=== PATIENT | female | born 1960 | race Caucasian/White ===

== ENCOUNTER 2018-07-02 00:52 | Emergency (ER) | payer MEDICAID ==
[2018-07-02 00:59] VITALS: BMI 27.4
--- NOTE | 2018-07-02 01:10 | ED PDOC ---
Arrival/HPI - General Historian: Patient - History of Present Illness Narrative History of Present Illness (Text): 07/02/18 00:59 57 y/o female, pmh including colon cancer diagnosed in 2017 spreading to the spine and under chemotherapy/DVT with stefan filter, nkda, c/o lower abdominal pain x 4 days with chronic lower back pain for over 6 months, thought she is constipated but still in pain, had tramadol at home which she doesn't like the effect so she didn't take it. Pt. also complaining about the rt. calf pain as well as she is concerning about recurrent DVT. Pt. has no nausea/vomiting/diarrhea, no rash, no dizziness, no change in vision, no diarrhea, no other medical or psychological complaints. <Greg Montes - Last Filed: 07/02/18 02:06> Past Medical History - Provider Review Nursing Documentation Reviewed: Yes <Greg Montes - Last Filed: 07/02/18 02:06> Family/Social History - Physician Review Nursing Documentation Reviewed: Yes Family/Social History: Unknown Family HX <Greg Montes - Last Filed: 07/02/18 02:06> Allergies/Home Meds <Greg Montes - Last Filed: 07/02/18 02:06> <Tonio Simmons DO - Last Filed: 07/02/18 06:09> Allergies/Adverse Reactions: Allergies No Known Allergies Allergy (Verified 07/02/18 00:59) Home Medications: Home Meds Medication Instructions Recorded Confirmed Trifluridine/Tipiracil HCl 1 each PO DAILY 07/02/18 07/02/18 [Lonsurf 20 mg-8.19 mg Tablet] Review of Systems - Review of Systems Constitutional: absent: Fatigue, Fevers Eyes: absent: Vision Changes ENT: absent: Hearing Changes Respiratory: absent: SOB, Cough Cardiovascular: absent: Chest Pain Gastrointestinal: Abdominal Pain, Constipation. absent: Nausea, Vomiting Musculoskeletal: Back Pain, Myalgias. absent: Arthralgias, Neck Pain, Joint Swelling Skin: absent: Rash, Pruritis Neurological: absent: Headache, Dizziness Psychiatric: absent: Anxiety, Depression, Suicidal Ideation <Greg Montes - Last Filed: 07/02/18 02:06> Physical Exam Vital Signs Reviewed: Yes Temperature: Afebrile Blood Pressure: Normal Pulse: Tachycardic Respiratory Rate: Normal Appearance: Positive for: Well-Appearing, Non-Toxic, Comfortable Pain Distress: Moderate Mental Status: Positive for: Alert and Oriented X 3 - Systems Exam Head: Present: Atraumatic, Normocephalic Pupils: Present: PERRL Extroacular Muscles: Present: EOMI Conjunctiva: Present: Normal Ears: Present: NORMAL TM, Normal Canal. No: Erythema Mouth: Present: Moist Mucous Membranes Pharnyx: No: ERYTHEMA, EXUDATE, TONSILS ENLARGED, Peritonsilar Swelling, Uvular Deviation, Muffled/Hoarse Voice Nose (Internal): Present: No Active Bleeding. No: Rhinorrhea, Septal Hematoma, Epistaxis Neck: Present: Normal Range of Motion, Trachea Midline. No: Meningeal Signs, MIDLINE TENDERNESS, Paraspinal Tenderness, Lymphadenopathy Respiratory/Chest: Present: Clear to Auscultation, Good Air Exchange. No: Respiratory Distress, Accessory Muscle Use Cardiovascular: Present: Regular Rate and Rhythm, Normal S1, S2. No: Murmurs Abdomen: Present: Tenderness (lower abdomen), Normal Bowel Sounds. 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 No: Occult Blood, Rectal Tenderness, Gross Blood, Melena, Fissures, Nodule/Mass/Lesions Back: Present: Normal Inspection, Other (LS spine: no midline tenderness or step off, no paraspinal tenderness, no CVA tenderness, FROM without limitation, sensation intact, motor 5/5, no saddling gait. ). No: CVA Tenderness, Midline Tenderness, Paraspinal Tenderness, Pain with Leg Raise, Decubitus Ulcer Upper Extremity: Present: Normal Inspection. No: Cyanosis, Edema Lower Extremity: Present: Normal Inspection, CALF TENDERNESS (mild rt. calf tenderness), NORMAL PULSES, Normal ROM, Neurovascularly Intact, Capillary Refill < 2 s. No: Edema, Deformity Neurological: Present: GCS=15, CN II-XII Intact, Speech Normal Skin: Present: Warm, Dry, Normal Color. No: Rashes Psychiatric: Present: Alert, Oriented x 3, Normal Insight, Normal Concentration <Greg Montes Q - Last Filed: 07/02/18 02:06> Vital Signs Temp Pulse Resp BP Pulse Ox 07/02/18 02:01 84 16 110/63 100 07/02/18 01:12 98.4 F 107 H 18 107/67 96 <Tonio Simmons DO - Last Filed: 07/02/18 06:09> Medical Decision Making ED Course and Treatment: 07/02/18 01:18 Differential: DVT vs. Compression spine fracture vs. UTI/Cystitis vs. pancreatitis vs. Ureter stone vs. Metastatic cancer vs. Constipation vs. dehydration -Labs -CT abdomen and pelvis -CT Lumbar spine -IV pepcid/toradol -Observe and reassess 07/02/18 02:01 -Guaiac is positive, she has colon cancer so this would likely be positive, no bel blood or black color stool. -Labs are significant for hgb 7.1 (no previous comparison but pt. stated that he normal hgb is around 6-7??). Pt. refused blood transfusion at this time, explained to her that her colon cancer condition would causes chronic anemia which stated that she understand. K+ 3.3, potassium chloride 20meq po ordered. -Type and screen added. -UA ordered and pending test. -CT abdomen and pelvis ordered and pending test. -CT Lumbar spine ordered and pending test. -RLE Venuous doppler ordered and pending test. -Case discussed and endorsed to the ER attending Dr. Simmons to follow up on the pending sonogram and CT abdomen/pelvis and Lumbar spine. <Greg Montes - Last Filed: 07/02/18 02:06> ED Course and Treatment: 07/02/18 04:21 Patient is feeling better. Patient wishes to be discharged. Will follow up with her primary care doctor in 1-2 days for re-evaluation and further management. Rx given to patient. - Lab Interpretations Lab Results: PT 15.1 SECONDS (9.4-12.5) H 07/02/18 01:30 INR 1.36 07/02/18 01:30 APTT 30.6 Seconds (26.9-38.3) 07/02/18 01:30 Total Bilirubin 0.7 mg/dL (0.2-1.3) 07/02/18 01:30 AST 44 U/L (14-36) H 07/02/18 01:30 ALT 9 U/L (7-56) 07/02/18 01:30 Alkaline Phosphatase 62 U/L (38-126) 07/02/18 01:30 Total Protein 7.2 g/dL (5.8-8.3) 07/02/18 01:30 Albumin 3.9 g/dL (3.0-4.8) 07/02/18 01:30 Globulin 3.3 gm/dL 07/02/18 01:30 Albumin/Globulin Ratio 1.2 (1.1-1.8) 07/02/18 01:30 Lipase 77 U/L (23-300) 07/02/18 01:30 Urine Color Yellow (YELLOW) 07/02/18 02:54 Urine Appearance Clear (CLEAR) 07/02/18 02:54 Urine pH 6.5 (4.7-8.0) 07/02/18 02:54 Ur Specific [place] <= 1.005 (1.005-1.035) 07/02/18 02:54 Urine Protein Negative mg/dL (<30 mg/dL) 07/02/18 02:54 Urine Glucose (UA) Negative mg/dL (NEGATIVE) 07/02/18 02:54 Urine Ketones Negative mg/dL (NEGATIVE) 07/02/18 02:54 Urine Blood Negative (NEGATIVE) 07/02/18 02:54 Urine Nitrate Negative (NEGATIVE) 07/02/18 02:54 Urine Bilirubin Negative (NEGATIVE) 07/02/18 02:54 Urine Urobilinogen 0.2 E.U./dL (<1 E.U./dL) 07/02/18 02:54 Ur Leukocyte Esterase Negative Nikia/uL (NEGATIVE) 07/02/18 02:54 - RAD Interpretation Radiology Orders: 07/02/18 01:11 ABD & PELVIS IV CONTRAST ONLY [CT] Stat LUMBAR SPINE W/O CONTRAST [CT] Stat DUPLEX LOWER EXTRM VEIN RIGHT [US] Stat - Medication Orders Current Medication Orders: Sodium Chloride (Sodium Chloride 0.9%) 1,000 mls @ 100 mls/hr IV .Q10H LEODAN Last Admin: 07/02/18 01:38 Dose: 100 mls/hr eMAR Start Stop Document 07/02/18 01:38 KV (Rec: 07/02/18 01:41 KV [id number]) Intravenous Solution Start Date 07/02/18 Start Time 01:38 Discontinued Medications Famotidine (Pepcid) 20 mg IVP STAT STA Stop: 07/02/18 01:12 Last Admin: 07/02/18 01:38 Dose: 20 mg IVP Administration Document 07/02/18 01:38 KV (Rec: 07/02/18 01:42 KV [id number]) Charges for Administration # of IVP Administrations 1 Ketorolac Tromethamine (Toradol) 30 mg IVP STAT STA Stop: 07/02/18 01:20 Last Admin: 07/02/18 01:38 Dose: 30 mg [facility] Pain Assessment Document 07/02/18 01:38 KV (Rec: 07/02/18 01:42 KV [id number]) Pain Reassessment Is this a pain reassessment? No Sleep Is patient sleeping during reassessment? No Presence of Pain Presence of Pain Yes Pain Scale Used Protocol: [facility] Pain Scale Used Numeric Location Left, Right or Bilateral Bilateral Upper or Lower Lower Pain Location Body Site Back Description Description Constant Intensity of Pain at present 10 IVP Administration Document 07/02/18 01:38 KV (Rec: 07/02/18 01:42 KV [id number]) Charges for Administration # of IVP Administrations 1 Re-Assess: MAR Pain Assessment Document 07/02/18 02:38 KV (Rec: 07/02/18 03:05 KV [id number]) Pain Reassessment Is this a pain reassessment? Yes Sleep Is patient sleeping during reassessment? No Presence of Pain Presence of Pain Yes Pain Scale Used Protocol: [facility] Pain Scale Used Numeric Location Left, Right or Bilateral Bilateral Upper or Lower Lower Pain Location Body Site Back Description Description Constant Intensity of Pain at present 7 Potassium Chloride (K-Dur 20 Meq Er Tab) 20 meq PO STAT STA Stop: 07/02/18 02:07 Last Admin: 07/02/18 03:01 Dose: 20 meq <Tonio Simmons DO - Last Filed: 07/02/18 06:09> - PA / [employer] SUPERVISOR / Resident Statement YASSINE has reviewed & agrees with the documentation as recorded. <Greg Montes - Last Filed: 07/02/18 02:06> Disposition/Present on Arrival - Present on Arrival Any Indicators Present on Arrival: No History of DVT/PE: No History of Uncontrolled Diabetes: No Urinary Catheter: No History of Decub. Ulcer: No - Disposition Have Diagnosis and Disposition been Completed?: Yes <Greg Montes Gabriella - Last Filed: 07/02/18 02:06> - Disposition Disposition Time: 03:30 <Tonio Simmons DO - Last Filed: 07/02/18 06:09> - Disposition Diagnosis: Colon cancer, Anemia Disposition: HOME/ ROUTINE Patient Problems: Current Active Problems Problem Status Onset Colon cancer Acute Anemia Acute Condition: IMPROVED Discharge Instructions (ExitCare): Colon and Rectal Cancer (DC) Additional Instructions: JOSE FAJARDO, thank you for letting us take care of you today. The emergency medical care you received today was directed at your acute symptoms. If you were prescribed any medication, please fill it and take as directed. It may take several days for your symptoms to resolve. Return to the Emergency Department if your symptoms worsen, do not improve, or if you have any other problems. Please contact your doctor or call one of the physicians/clinics you have been referred to that are listed on the Patient Visit Information form that is included in your discharge packet. Bring any paperwork you were given at discharge with you along with any medications you are taking to your follow up visit. Our treatment cannot replace ongoing medical care by a primary care provider outside of the emergency department. Thank you for allowing the [facility] team to be part of your care today. Follow up with your primary care doctor or oncologist in 1-2 days for re- evaluation and further management. Return to the emergency room if you have any concerns. Prescriptions: oxyCODONE [oxyCODONE Immediate Release Tab] 5 mg PO Q6 PRN #15 tab PRN Reason: Pain, Severe (8-10) Polyethylene Glycol 3350 [Miralax] 17 % PO DAILY PRN 7 Days ml PRN Reason: Constipation Referrals: [employer] [facility] Jony Regabriella, [Non-Staff] - Follow up with primary Forms: [employer] (Latvian)
[2018-07-02 01:13] VITALS: TEMP 98.4
[2018-07-02] MEDS ORDERED: Sodium Chloride 0.9% 1,000 ML IV SCH (01:30)
[2018-07-02 01:48] LABS: BASO # 0.01 K/mm3 (0.0-2.0); BASO % 0.2 % (0.0-3.0); EOS # 0.1 (0.0-0.7); EOS % 1.6 % (1.5-5.0); HEMOGLOBIN 7.1 g/dL (12.0-16.0); LYMPH # 1.1 (1.2-3.4); LYMPH % 24.9 % (22.0-35.0); MEAN CELL VOLUME 61.2 fl (80.0-105.0); MEAN CORPUSCULAR HEMOGLOBIN 18.3 pg (25.0-35.0); MEAN PLATELET VOLUME 8.8 fl (7.0-11.0); MONO # 0.1 (0.1-0.6); MONO % 2.9 % (1.0-6.0); RBC 3.87 10^6/uL (3.5-6.1); RED CELL DISTRIBUTION WIDTH 21.2 % (11.5-14.5); WHITE BLOOD COUNT 4.5 10^3/uL (4.5-11.0)
[2018-07-02 01:49] LABS: INR 1.36; PARTIAL THROMBOPLASTIN TIME 30.6 Seconds (26.9-38.3); PROTHROMBIN TIME 15.1 SECONDS (9.4-12.5)
[2018-07-02 01:57] LABS: ALB/GLOB RATIO 1.2 (1.1-1.8); ALBUMIN 3.9 g/dL (3.0-4.8); ALT/SGPT 9 U/L (7-56); AST/SGOT 44 U/L (14-36); BLOOD UREA NITROGEN 13 mg/dL (7-21); CALCIUM 8.7 mg/dL (8.4-10.5); GFR NON-AFRICAN AMERICAN > 60; LIPASE 77 U/L (23-300)
[2018-07-02 02:02] VITALS: PULSE 84; RESP 16; O2SAT 100
[2018-07-02 02:03] VITALS: BP 110/63
[2018-07-02] MEDS ORDERED: Potassium Chloride 20 mEq ER Tab PO STA (02:06)
[2018-07-02] MEDS ORDERED: Iohexol 350 MG/100 ML VIAL ONE (02:26)
[2018-07-02 03:09] LABS: PH,URINE 6.5 (4.7-8.0); URINE BILIRUBIN NEGATIVE (NEGATIVE); URINE BLOOD NEGATIVE (NEGATIVE); URINE GLUCOSE (UA) NEGATIVE (NEGATIVE); URINE LEUKOCYTE ESTERASE NEGATIVE Leu/uL (NEGATIVE); URINE PROTEIN NEGATIVE mg/dL (<30 mg/dL); URINE UROBILINOGEN 0.2 E.U./dL (<1 E.U./dL)
[2018-07-02 03:26] LABS: URINE APPEARANCE CLEAR (CLEAR); URINE COLOR YELLOW (YELLOW)
--- NOTE | 2018-07-02 08:01 | CT ---
Date of service: 07/02/2018 PROCEDURE: CT Lumbar Spine without contrast HISTORY: stage 4 colon cancer, lower back pain x 1 week COMPARISON: None available. TECHNIQUE: Axial computed tomography images were obtained of the lumbar spine without the use of intravenous contrast. Coronal and sagittal reformatted images were created and reviewed. Radiation dose: Total exam DLP = 586.71 mGy-cm. This CT exam was performed using one or more of the following dose reduction techniques: Automated exposure control, adjustment of the mA and/or kV according to patient size, and/or use of iterative reconstruction technique. FINDINGS: VERTEBRAE: There is degenerative 4 mm retrolisthesis of L1 on L2 and 6 mm anterior listhesis of L4 on L5. There is exaggerated lumbar lordosis. There is severe diffuse bone demineralization. No acute fracture. There is a probable defect in pars interarticularis at L5 on the left. DISCS/SPINAL CANAL/NEURAL FORAMINA: L1-2: The disc is desiccated. There is a diffuse posterior disc bulge in conjunction with mild facet arthropathy result in moderate to severe neural foraminal narrowing. No central spinal canal stenosis. L2-3: Posterior disc bulge indents the ventral thecal sac without central spinal canal stenosis. Mild bilateral facet arthropathy contribute to moderate neural foraminal narrowing. L3-4: Diffuse posterior disc bulge and mild ligamentum flavum infolding without central spinal canal stenosis. Moderate bilateral facet arthropathy contribute to moderate neural foraminal narrowing. L4-5: Diffuse posterior disc bulge in conjunction with moderate ligamentum flavum infolding result in mild spinal canal stenosis. Severe bilateral facet arthropathy contribute to severe neural foraminal narrowing. L5-S1: Mild posterior disc bulge without central spinal canal stenosis. Mild bilateral facet arthropathy contribute to mild neural foraminal narrowing. PARASPINAL SOFT TISSUES: Unremarkable. OTHER FINDINGS: There is moderate amount of free fluid in the pelvis of uncertain etiology. The fluid also demonstrates layering high attenuation. An infrarenal IVC filter remains in place. IMPRESSION: 1. Severe diffuse osteopenia. 2. No acute fracture or traumatic anterior listhesis. 3. Multilevel degenerative disc disease, worse at L4-5 with a diffuse posterior disc bulge, mild spinal canal stenosis, severe right neural foraminal narrowing and degenerative grade 1 anterior listhesis of L4 on L5. 4. Moderate amount of free fluid in the pelvis some of which demonstrate layering attenuation which could represent hemorrhage. CT scan of the abdomen and pelvis with intravenous contrast is recommended for further evaluation. A preliminary report was provided by [employer].
--- NOTE | 2018-07-02 11:17 | CT ---
Date of service: 07/02/2018 PROCEDURE: CT Abdomen and Pelvis with contrast HISTORY: colon cancer stage 4, lower abdominal pain x 4 day COMPARISON: The follow-up the short down 9 knee soft a mild appreciated bowel biopsy [address] TECHNIQUE: CT scan of the abdomen and pelvis was performed after administration of intravenous contrast. Oral contrast was not administered. Coronal and sagittal reformatted images were obtained. Contrast dose: Radiation dose: Total exam DLP = 365.56 mGy-cm. This CT exam was performed using one or more of the following dose reduction techniques: Automated exposure control, adjustment of the mA and/or kV according to patient size, and/or use of iterative reconstruction technique. FINDINGS: LOWER THORAX: The visualized lungs are clear. LIVER: Normal in size with homogeneous enhancement. No intrahepatic biliary dilatation. There is a 7.1 x 7.9 cm lobular multi-septated low-attenuation mass in the right hepatic lobe. GALLBLADDER AND BILE DUCTS: Cholelithiasis without wall thickening or pericholecystic fluid. PANCREAS: Diffuse atrophy of the pancreas. Homogeneous enhancement. No gross lesion or ductal dilatation. SPLEEN: Normal in size and appearance. ADRENALS: The right adrenal gland is normal in size and appearance without discrete nodule. There is a 1.9 x 2.4 cm low-attenuation nodule in the left adrenal gland densities corresponding to a benign adenoma. KIDNEYS AND URETERS: Normal in size with homogeneous enhancement. No hydronephrosis. No solid mass. VASCULATURE: No aortic aneurysm. There are no aortic atherosclerotic calcifications or mural plaque present. An infrarenal IVC filter remains in satisfactory position. BOWEL: Evaluation of the bowel is limited in the absence of oral contrast. The small bowel loops are normal in caliber. There is moderate amount of stool in the colon. There is apparent circumferential mural thickening in proximal sigmoid colon APPENDIX: Normal appendix. PERITONEUM: There is small amount of free fluid in the abdomen and pelvis. No free air. There are multiple variable size heterogeneously enhancing mesenteric, the largest in the on T2 ir right hemipelvis measures 6.1 x 4.5 cm. LYMPH NODES: No enlarged lymph nodes. BLADDER: Well distended and normal in appearance. REPRODUCTIVE: The uterus is surgically absent. BONES: No acute fracture. Severe diffuse bone demineralization there is a well-circumscribed round lesion in the posterior inferior L3 vertebral body on the right. OTHER FINDINGS: None. IMPRESSION: 1. Findings are most compatible with a large metastatic deposit in the right hepatic lobe and multiple metastatic mesenteric masses, the largest in the right anterior hemipelvis. 2. Apparent circumferential mural thickening in the proximal sigmoid colon which could be related to underdistention or neoplastic annular stricture however this finding is not completely evaluated in and or neural distended colon in the absence of oral contrast. 3. Solitary radiolucent lesion in the posterior inferior L3 vertebral body on the right which could represent a metastatic lesion however MRI of the spine without and with intravenous contrast would be helpful for further characterization. A preliminary report was provided by [employer].
--- NOTE | 2018-07-03 09:18 | US ---
PROCEDURE: Right lower extremity venous US HISTORY: Leg pain and swelling. Evaluate for DVT. PHYSICIAN(S): Joselito Germain M.D. TECHNIQUE: Duplex sonography and color-flow Doppler with graded compression were used to evaluate the deep venous system of the right lower extremity. FINDINGS: There is a minimal amount of chronic adherent nonocclusive thrombus in the right common femoral vein. The right femoral vein, popliteal vein, and visualized tibial veins are patent and compressible IMPRESSION: 1. Chronic, adherent, nonocclusive thrombus in the right common femoral
== END 2018-07-02 04:45 | disposition home or self-care (01) ==
LOC: ED 00:52
DX: C18.9 Malignant neoplasm of colon, unspecified (principal); D64.9 Anemia, unspecified
CPT/HCPCS: 72131; 74177; 80053; 81003; 83690; 85025; 85610; 85730; 86850; 86900; 93971; 96374; 96375; 99285; J1885; J7030; Q9967